=== PATIENT | male | born 1990 ===

== ENCOUNTER 2018-02-11 16:43 | Emergency (ER) | payer SELFPAY ==
[2018-02-11] MEDS ORDERED: NACL 0.9% 1000 ML 1,000 ML IV ONE (16:57)
--- NOTE | 2018-02-11 17:15 | Emergency Department Report ---
ED Abdominal Pain HPI - General Chief Complaint: Abdominal Pain Stated Complaint: ABD PAIN Time Seen by Provider: 02/11/18 17:07 Source: patient Mode of arrival: Ambulatory Limitations: Language Barrier - History of Present Illness Initial Comments: Patient is 27 years old male with no significant past medical history. Patient presented to the ER complaining of right lower quadrant pain started 2 hours ago associated with nausea and vomiting. Patient denied any fever or diarrhea. MD Complaint: abdominal pain Location: RLQ Radiation: none Migration to: no migration Severity: moderate Severity scale (0 -10): 5 Consistency: constant - Related Data Allergies Allergy/AdvReac Type Severity Reaction Status Date / Time No Known Allergies Allergy Unverified 02/11/18 16:57 ED Review of Systems ROS: Stated complaint: ABD PAIN Other details as noted in HPI Comment: All other systems reviewed and negative Constitutional: denies: chills, fever Respiratory: denies: cough, orthopnea, shortness of breath, SOB with exertion Cardiovascular: denies: chest pain, palpitations Gastrointestinal: abdominal pain, nausea, vomiting. denies: diarrhea, constipation, hematemesis, melena, hematochezia Neurological: denies: headache, weakness, numbness, paresthesias, confusion, abnormal gait ED Past Medical Hx - Past Medical History Previous Medical History?: No - Surgical History Past Surgical History?: No - Social History Smoking Status: Never Smoker ED Physical Exam - General Limitations: Language Barrier General appearance: alert, in no apparent distress - Head Head exam: Present: atraumatic, normocephalic, normal inspection - ENT ENT exam: Present: normal exam, normal orophraynx, mucous membranes moist - Neck Neck exam: Present: normal inspection, full ROM. Absent: tenderness, meningismus, lymphadenopathy, thyromegaly - Respiratory Respiratory exam: Present: normal lung sounds bilaterally - Cardiovascular Cardiovascular Exam: Present: regular rate, normal rhythm, normal heart sounds - GI/Abdominal GI/Abdominal exam: Present: soft, normal bowel sounds. Absent: distended, tenderness, guarding, rebound, rigid, organomegaly, mass, bruit, pulsatile mass , hernia - Extremities Exam Extremities exam: Present: normal inspection, full ROM, normal capillary refill - Back Exam Back exam: Present: normal inspection, full ROM. Absent: CVA tenderness (R), CVA tenderness (L) - Neurological Exam Neurological exam: Present: alert, oriented X3, CN II-XII intact, normal gait, reflexes normal - Skin Skin exam: Present: warm, intact, normal color ED Course Vital Signs 02/11/18 02/11/18 16:52 17:30 Temperature 98.0 F 98.8 F Pulse Rate 72 62 Respiratory 18 18 Rate Blood Pressure 132/85 Blood Pressure 134/78 [Right] O2 Sat by Pulse 100 Oximetry ED Medical Decision Making - Lab Data Result diagrams: 02/11/18 17:28 02/11/18 17:28 - Radiology Data Radiology results: report reviewed Referring Physician: ANJANA MORILLO Patient Name: DEMETRA PAZ Date of : 1990 Sex: Male Report Date: 2018-02-11 Report Status: Finalized Findings [facility] [address] [place] [address] Cat Scan Report Signed Patient: DEMETRA PAZ MR#: [id number] : 1990 Acct:[id number] Age/Sex: 27 / M ADM Date: 02/11/18 Loc: ED Attending Dr: Ordering Physician: ANJANA MORILLO Date of Service: 02/11/18 Procedure(s): CT abdomen pelvis w con Accession Number(s): [id number] cc: ANJANA MORILLO FINAL REPORT EXAM: CT ABDOMEN PELVIS W CON HISTORY: abdominal pain/ RLQ PAIN TECHNIQUE: Spiral CT scanning of the abdomen and pelvis after the uneventful administration of IV contrast. Multiplanar reformations. 100 mL Omnipaque IV. PRIORS: None. FINDINGS: Abdomen: Visualized lung bases grossly unremarkable. No radiopaque gallstones. Liver without significant abnormality. Spleen without significant abnormality. Pancreas without significant abnormality. Kidneys without significant abnormality. Adrenal glands without significant abnormality. Pelvis: Bowel grossly unremarkable. Appendix within normal limits. No significant free peritoneal fluid, discrete abscess or apparent adenopathy. Abdominal aorta non-aneurysmal. Axial skeleton without acute abnormality. Dystrophic or heterotopic ossification incidentally noted off the left ischial tuberosity. IMPRESSION: 1. No acute findings. Transcribed By: [facility] Dictated By: SUSIE COLEMAN MD Electronically Authenticated By: SUSIE COLEMAN MD Signed Date/Time: 02/11/181911 DD/ 11 TD/TT: 02/11/181911 - Medical Decision Making Mr Paz is 27 years old male with no significant past medical history. Patient presented to the ER complaining of right lower quadrant pain started 2 hours ago associated with nausea and vomiting. Patient denied any fever or diarrhea. Patient's symptoms completely resolved. On exam abdomen is soft nontender, no rebound tenderness negative McBurney sign. CT abdomen and pelvis did not show acute findings. Appendix is normal. Critical care attestation.: If time is entered above; I have spent that time in minutes in the direct care of this critically ill patient, excluding procedure time. ED Disposition Clinical Impression: Abdominal pain Disposition: DC-01 TO HOME OR SELFCARE Is pt being admited?: No Condition: Stable Instructions: Abdominal Pain (ED) Referrals: SAMUEL RAMIRES MD [Staff Physician] - 3-5 Days
[2018-02-11 17:32] VITALS: BP 134/78
[2018-02-11 17:49] LABS: Basophils % (Auto) 0.2 % (0.0-1.8); Eosinophils # (Auto) 0.1 K/mm3 (0.0-0.4); Eosinophils % (Auto) 0.8 % (0.0-4.3); Hemoglobin 13.8 gm/dl (11.8-15.2); Lymphocytes # (Auto) 1.2 K/mm3 (1.2-5.4); Lymphocytes % (Auto) 8.7 % (13.4-35.0); Mean Corpuscular HGB Conc 34 % (32-34); Mean Corpuscular Hemoglobin 31 pg (28-32); Mean Corpuscular Volume 92 fl (84-94); Monocytes # (Auto) 0.8 K/mm3 (0.0-0.8); Monocytes % (Auto) 5.8 % (0.0-7.3); Platelet Count 264 K/mm3 (140-440); Red Blood Count 4.47 M/mm3 (3.65-5.03); Red Cell Distribution Width 13.8 % (13.2-15.2)
[2018-02-11 18:03] LABS: Alanine Aminotransferase 15 units/L (7-56); BUN/Creatinine Ratio 13; Blood Urea Nitrogen 13 mg/dL (9-20); Calcium 9.6 mg/dL (8.4-10.2); Hemolysis Index 24; Lipase 17 units/L (13-60)
[2018-02-11 18:26] LABS: Bilirubin,Urine NEG (Negative); Blood,Urine MOD (Negative); Color,Urine Yellow (Yellow); Mucus,Urine FEW /HPF
--- NOTE | 2018-02-11 19:14 | Cat Scan Report ---
FINAL REPORT EXAM: CT ABDOMEN PELVIS W CON HISTORY: abdominal pain/ RLQ PAIN TECHNIQUE: Spiral CT scanning of the abdomen and pelvis after the uneventful administration of IV contrast. Multiplanar reformations. 100 mL Omnipaque IV. PRIORS: None. FINDINGS: Abdomen: Visualized lung bases grossly unremarkable. No radiopaque gallstones. Liver without significant abnormality. Spleen without significant abnormality. Pancreas without significant abnormality. Kidneys without significant abnormality. Adrenal glands without significant abnormality. Pelvis: Bowel grossly unremarkable. Appendix within normal limits. No significant free peritoneal fluid, discrete abscess or apparent adenopathy. Abdominal aorta non-aneurysmal. Axial skeleton without acute abnormality. Dystrophic or heterotopic ossification incidentally noted off the left ischial tuberosity. IMPRESSION: 1. No acute findings.
== END 2018-02-11 20:23 | disposition home or self-care (01) ==
LOC: ED 16:43
DX: R10.31 Right lower quadrant pain (principal); R11.2 Nausea with vomiting, unspecified
CPT/HCPCS: 36415; 74177; 80053; 81001; 82150; 83690; 85025; 96360; 99284; J7030; Q9967